=== PATIENT | female | born 1960 | race Two or more races ===

== ENCOUNTER 2018-02-17 16:42 | Emergency (ER) | payer BC ==
[~2018-02-17] VITALS: Ht 165.1 cm; Wt 101.6 kg
[2018-02-17 19:06] VITALS: BP 150/79
[2018-02-17] MEDS ORDERED: KETOROLAC TROMETH 60MG/2ML VIAL IM ONE (20:15)
== END 2018-02-17 20:55 | disposition home or self-care (01) ==
LOC: ER 16:42
DX: I82.811 Embolism and thrombosis of superficial veins of right lower extremity (principal); M25.461 Effusion, right knee
CPT/HCPCS: 29505; 73562; 93971; 96372; 99284; J1885